=== PATIENT | female | born 1990 | race African-American/Black ===

== ENCOUNTER 2018-01-01 10:49 | Emergency (ER) | payer BC, OTHER ==
[~2018-01-01] VITALS: Ht 157.5 cm; Wt 100.0 kg
[~2018-01-01 10:49] MED LIST: FERRCAP6 PO; ORTH0.35 PO; PREN1CAP26; PRENCAP35 PO
[2018-01-01 10:52] VITALS: BP 147/79; PULSE 72; RESP 16; TEMP 98.2; O2SAT 98
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
== END 2018-01-01 13:45 | disposition home or self-care (01) ==
LOC: NEPA 10:49
DX: S20.219A Contusion of unspecified front wall of thorax, initial encounter (principal); V43.52XA Car driver injured in collision with other type car in traffic accident, initial encounter
CPT/HCPCS: 71046; 99283